=== PATIENT | female | born 1995 | race Two or more races ===

== ENCOUNTER 2019-01-20 13:56 | Emergency (ER) | payer OTHER ==
[~2019-01-20] VITALS: Ht 160 cm; Wt 56.7 kg
== END 2019-01-20 17:20 | disposition home or self-care (01) ==
LOC: ER 13:56
DX: B34.9 Viral infection, unspecified (principal)

== ENCOUNTER → 2019-07-19 | Emergency (ER) | payer OTHER ==
[~2019-07-19] VITALS: Ht 160 cm; Wt 56.7 kg
[~2019-07-19] MED LIST: CLARITIN10 MG PO; DOLOGEN CAPLET1 EACH PO; TUSNEL LIQUID178 ML PO
== END | disposition home or self-care (01) ==
LOC: ER 21:27
DX: B34.9 Viral infection, unspecified (principal)

== ENCOUNTER 2019-10-06 11:47 | Emergency (ER) | payer OTHER ==
[~2019-10-06] VITALS: Ht 160 cm; Wt 52.2 kg
== END 2019-10-06 16:35 | disposition home or self-care (01) ==
LOC: ER 11:47
DX: B34.9 Viral infection, unspecified (principal)

== ENCOUNTER 2021-04-02 20:05 | Emergency (ER) | payer OTHER ==
[~2021-04-02] VITALS: Ht 160 cm; Wt 68.0 kg
== END 2021-04-02 23:08 | disposition home or self-care (01) ==
LOC: ER 20:05
DX: S90.822A Blister (nonthermal), left foot, initial encounter (principal); X58.XXXA Exposure to other specified factors, initial encounter; Y93.89 Activity, other specified; Y92.89 Other specified places as the place of occurrence of the external cause; Y99.8 Other external cause status

== ENCOUNTER 2022-03-09 09:58 | Outpatient (CLI) | payer OTHER | END 2022-03-09 09:59 | disposition home or self-care (01) | LOC: LAB 09:58 | DX: D50.9 Iron deficiency anemia, unspecified (principal); R73.03 Prediabetes; E78.2 Mixed hyperlipidemia; N39.0 Urinary tract infection, site not specified; E03.8 Other specified hypothyroidism; E55.9 Vitamin D deficiency, unspecified; Z12.11 Encounter for screening for malignant neoplasm of colon ==

== ENCOUNTER 2022-07-16 11:48 | Emergency (ER) | payer OTHER ==
[~2022-07-16] VITALS: Ht 160 cm; Wt 66.7 kg
[2022-07-16] MEDS ORDERED: ZITHROMAX500 MG PO (18:08)
== END 2022-07-16 18:13 | disposition home or self-care (01) ==
LOC: ER 11:48
DX: J06.9 Acute upper respiratory infection, unspecified (principal); Z20.822 Contact with and (suspected) exposure to COVID-19

== ENCOUNTER 2024-04-21 11:03 | Outpatient (CLI) | payer OTHER ==
[~2024-04-21 11:03] MED LIST changes: +ZITHROMAX500 MG PO
== END 2024-04-21 11:37 | disposition home or self-care (01) ==
LOC: SONOGRAMA 11:03
PROVIDERS: ATTEND Internal Medicine Gastroenterology
DX: E04.9 Nontoxic goiter, unspecified (principal)

== ENCOUNTER 2024-05-15 07:25 | Outpatient (CLI) | payer OTHER ==
[2024-05-15 08:09] LABS: URINE APPEARANCE Clear; URINE BILIRRUBIN Negative (NEGATIVE); URINE BLOOD Negative; URINE COLOR Yellow; URINE GLUCOSE Negative (NEGATIVE); URINE KETONE Negative (NEGATIVE); URINE LEUKOCYTE Negative; URINE NITRATE Negative; URINE PROTEIN Negative (NEGATIVE); URINE UROBILINOGEN 0.2 E.U./dl
[2024-05-15 08:13] LABS: URINE BACTERIA 114.6 uL (0.0-1933); URINE EPITHELIAL CELLS 3.3 uL (0.0-38.8); URINE RBC 2.9 uL (0.0-20.8)
[2024-05-15 08:25] LABS: HEMATOCRIT 37.6 % (36.0-45.00); MEAN CELL VOLUME 87.5 fL (80.00-100.00); MEAN CORPUSCULAR HEMOGLOBIN 30.3 pg (27.00-32.0); MEAN CORPUSCULAR HGB CONC 34.6 g/dl (32.0-36.0); PLATELET COUNT 267 K/uL (150-450); RED CELL DISTRIBUTION WIDTH 12.9 % (11.5-14.5)
[2024-05-15 08:25] LABS: URINE WBC 0.6 uL (0.0-23.2)
[2024-05-15 09:11] LABS: ALBUMIN 3.8 gm/dL (3.4-5.0); BILIRUBIN TOTAL 0.67 mg/dL (0.3-1.2); CALCIUM 9.1 mg/dL (8.5-10.1); CHOL HDL RATIO 2.8 (0-5.0); CREATININE SERUM 0.68 mg/dL (0.55-1.02); GFR 103.03; GLOBULINA 3.4 G/DL (2.4-3.5); POTASSIUM 4.13 mEq/L (3.5-5.1); T4 TOTAL 8.92 UG/DL (4.8-13.9); TOTAL PROTEIN 7.2 gm/dL (6.4-8.2); TSH 3.01 uIU/mL (0.358-3.74)
== END 2024-05-15 07:30 | disposition home or self-care (01) ==
LOC: LAB 07:25
DX: E03.9 Hypothyroidism, unspecified (principal); E11.9 Type 2 diabetes mellitus without complications; I10 Essential (primary) hypertension; R10.9 Unspecified abdominal pain

== ENCOUNTER 2024-08-13 06:41 | Outpatient (CLI) | payer OTHER ==
[2024-08-13 07:47] LABS: HEMATOCRIT 38.2 % (36.0-45.00); HEMOGLOBIN 12.8 g/dL (12.0-15.00); MEAN CELL VOLUME 88.7 fL (80.00-100.00); MEAN CORPUSCULAR HEMOGLOBIN 29.8 pg (27.00-32.0); MEAN CORPUSCULAR HGB CONC 33.6 g/dl (32.0-36.0); PLATELET COUNT 256 K/uL (150-450); RED BLOOD COUNT 4.31 M/uL (4.00-6.00)
[2024-08-13 08:55] LABS: MANUAL PLATELET COUNT 514
[2024-08-13 08:56] LABS: PLATELET ESTIMATE NORMAL (NORMAL)
[2024-08-13 09:15] LABS: % SATURACION 18.9 % (15-50); ALBUMIN 3.8 gm/dL (3.4-5.0); BILIRUBIN TOTAL 0.51 mg/dL (0.3-1.2); CALCIUM 9.2 mg/dL (8.5-10.1); CREATININE SERUM 0.81 mg/dL (0.55-1.02); FERRITIN 16.8 NG/ML (8-252); GFR 84.19; GLOBULINA 3.3 G/DL (2.4-3.5); POTASSIUM 3.77 mEq/L (3.5-5.1); TOTAL PROTEIN 7.1 gm/dL (6.4-8.2)
[2024-08-13 10:27] LABS: FOLIC ACID 11.37 ng/ml (4.78-20); VITAMIN D3 25 HYDROXY 46.96 ng/ml (30-120)
[2024-08-14 08:08] LABS: hav igm Negative (Negative); hcv Non Reactive (Non Reactive); hep b c Negative (Negative); hep b s ag Negative (Negative)
[2024-08-14 10:05] LABS: vca igm ab < 36.0 U/mL (0.0-35.9)
== END 2024-08-13 06:42 | disposition home or self-care (01) ==
LOC: LAB 06:41
PROVIDERS: ATTEND Internal Medicine Hematology & Oncology
DX: R59.0 Localized enlarged lymph nodes (principal); F33.9 Major depressive disorder, recurrent, unspecified; F41.3 Other mixed anxiety disorders; E06.5 Other chronic thyroiditis

== ENCOUNTER 2024-08-13 07:37 | Outpatient (CLI) | payer OTHER | END 2024-08-13 07:51 | disposition home or self-care (01) | LOC: SONOGRAMA 07:37 | PROVIDERS: ATTEND Internal Medicine Hematology & Oncology | DX: R59.0 Localized enlarged lymph nodes (principal); F33.9 Major depressive disorder, recurrent, unspecified; F41.3 Other mixed anxiety disorders; E06.5 Other chronic thyroiditis ==